=== PATIENT | male | born 1960 | race Caucasian/White ===

== ENCOUNTER 2018-08-19 15:59 | Emergency (ER) | payer OTHER, SELFPAY ==
[~2018-08-19] VITALS: Ht 175.3 cm; Wt 113.0 kg
--- NOTE | 2018-08-19 16:08 | NUR ---
PT BIB [facility] FROM WORK. PT SMASHED HIS HAND INTO AN ELECTRIC GATE. PT HAS PAIN, SWELLING ON 3RD, 4TH, AND 5TH FINGERS ON LEFT HAND. ABRASIONS TO MIDDLE AND PINKY FINGER. BLEEEDING CONTROLLED. + CMS INTACT. PT WAS GIVEN 4 MG ZOFRAN AND 100 MCG FENTANYL. PT IS ALERT, ORIENTED, WITH NAD. PT IS CONNECTED TO THE MONITOR. CALL LIGHT WITHIN REACH.
[2018-08-19 17:13] VITALS: BP 155/77
--- NOTE | 2018-08-19 17:14 | NUR ---
PT IS RESTING IN BED, WATCHING TV, RESPIRATIONS EQUAL AND NON LABORED. NAD. PT IS CONNECTED TO THE MONITOR. CALL LIGHT WITHIN REACH.
[2018-08-19] MEDS ORDERED: BACITRACIN ZINC OINT 500U/GM, 0.9 GM ONE (17:45)
--- NOTE | 2018-08-19 18:15 | NUR ---
Patient given discharge instructions and they have confirmed that they understand the instructions. Patient ambulatory with steady gait.
== END 2018-08-19 18:17 | disposition home or self-care (01) ==
LOC: ED 18:02
DX: S60.413A Abrasion of left middle finger, initial encounter (principal); E11.9 Type 2 diabetes mellitus without complications; X58.XXXA Exposure to other specified factors, initial encounter; Y93.89 Activity, other specified; Y92.69 Other specified industrial and construction area as the place of occurrence of the external cause; Y99.0 Civilian activity done for income or pay
CPT/HCPCS: 99283